=== PATIENT | female | born 1985 | race American Indian/Alaskan Native ===

== ENCOUNTER 2017-07-13 09:59 | Outpatient (CLI) | payer OTHER ==
[2017-07-13] MEDS ORDERED: PRENATAL TABLE1 EAC1 PO (10:47)
== END 2017-07-13 18:03 | disposition home or self-care (01) ==
LOC: OBS/DEL 09:59
DX: O13.3 Gestational [pregnancy-induced] hypertension without significant proteinuria, third trimester (principal); O47.1 False labor at or after 37 completed weeks of gestation; Z34.03 Encounter for supervision of normal first pregnancy, third trimester

== ENCOUNTER 2017-07-18 05:05 | Inpatient (IN) | payer OTHER ==
[~2017-07-18] VITALS: Ht 160 cm; Wt 97.1 kg
[~2017-07-18 05:05] MED LIST: PRENATAL TABLE1 EAC1 PO
== END 2017-07-20 09:47 | disposition home or self-care (01) | DRG 775 ==
LOC: LDR 05:05 → OB/GYN 05:05 → LDR 05:21 → OB/GYN 16:50
PROC: 0HQ9XZZ Repair Perineum Skin, External Approach (ICD-10-PCS; principal; 2017-07-18)
PROC: 10E0XZZ Delivery of Products of Conception, External Approach (ICD-10-PCS; 2017-07-18)
PROC: 3E033VJ Introduction of Other Hormone into Peripheral Vein, Percutaneous Approach (ICD-10-PCS; 2017-07-18)
PROC: 4A1HXCZ Monitoring of Products of Conception, Cardiac Rate, External Approach (ICD-10-PCS; 2017-07-18)
DX: O70.0 First degree perineal laceration during delivery (principal); O41.03X0 Oligohydramnios, third trimester, not applicable or unspecified; O13.3 Gestational [pregnancy-induced] hypertension without significant proteinuria, third trimester; Z3A.39 39 weeks gestation of pregnancy; Z37.0 Single live birth